=== PATIENT | male | born 1955 | race Caucasian/White ===

== ENCOUNTER 2020-07-23 09:48 | Observation (INO) ==
[2020-07-23] MEDS ORDERED: SODIUM CHLORIDE 0.9% 1,000 ML IV STA (09:55)
[2020-07-23] MEDS ORDERED: KETOROLAC 30 MG/1 ML VIAL IV STA (09:55)
[2020-07-23] MEDS ORDERED: ONDANSETRON 4 MG/2 ML VIAL IV STA (09:55)
[2020-07-23] MEDS ORDERED: HYDROmorphone 2 MG/1 ML VIAL IV STA ×2 (09:55→12:17)
[2020-07-23] MEDS ORDERED: HYDROmorphone 2 MG/1 ML VIAL ONE (09:56)
[2020-07-23] MEDS ORDERED: ONDANSETRON 4 MG/2 ML VIAL ONE (09:56)
[2020-07-23 10:14] LABS: Basophils # 0.1 10*3/uL (0.0-0.2); Basophils % 0.7 % (0.0-0.8); Eosinophils # 0.1 10*3/uL (0.0-0.87); Eosinophils % 1.1 % (0.00-10.9); Hematocrit 45.2 VOL% (42.0-52.0); Hemoglobin 15.3 GM/DL (14.0-18.0); Immature Granulocytes % 1.4 %; Immature Granulocytes Absolute 0.16 #; Lymphocytes # 2.4 10*3/uL (1.4-4.0); Lymphocytes % 20.6 % (21.2-54.2); Mean Corpuscular HGB Conc 33.8 GM/DL (32-36); Mean Corpuscular Volume 93.6 FL (87-102); Mean Platelet Volume 9.8 FL (9.6-12.0); Monocytes % 5.7 % (1.7-12.7); Neutrophils % 70.5 % (38.7-73.9); Platelet Count 256 T/CUMM (130-400); Red Blood Count 4.83 MC/CUMM (3.8-5.5); Red Cell Distribution Width 12.6 % (9.3-17.3); White Blood Count 11.4 T/CUMM (4-12)
[2020-07-23 10:38] LABS: Calcium 9.9 MG/DL (8.5-10.1); Osmolality,Calculated 281.7 MOS/KG (273-304); Potassium 3.6 MMOL/L (3.5-5.1)
[2020-07-23] MEDS ORDERED: PIPERACILLIN/TAZOBACTAM 3,375 MG in SODIUM CHLORIDE 0.9% 100 ML IV STA (10:51)
[2020-07-23] MEDS ORDERED: hydrALAZINE 20 MG/1 ML VIAL IV STA (10:57)
[2020-07-23] MEDS ORDERED: hydrALAZINE 20 MG/1 ML VIAL ONE (10:57)
[2020-07-23] MEDS ORDERED: HYDROmorphone 2 MG/1 ML VIAL IV PRN (12:28)
[2020-07-23] MEDS ORDERED: ACETAMINOPHEN 325 MG TABLET PO PRN (12:28)
[2020-07-23] MEDS ORDERED: NALOXONE 0.4 MG/ML VIAL IV PRN (12:28)
[2020-07-23] MEDS ORDERED: hydroCHLOROthiazide 25 MG TABLET PO PRN (12:31)
[2020-07-23] MEDS: SODIUM CHLORIDE 0.45% 1,000 ML IV SCH ×2 (13:00→21:54)
[2020-07-23 14:29] LABS: Bilirubin,Urine Negative (Negative); Blood, Urine Negative (Negative); Glucose,Urine (UA) 150 mg/dL (Negative); Ketones,Urine 5 mg/dL (Negative); Mucus,Urine Occasional /LPF (Occasional); Nitrite,Urine Negative (Negative); Protein,Urine Negative; Squamous Epithelial Cell,Urine Occasional /HPF (0-10); Urine Appearance CLEAR (Clear); Urine Color Yellow (Yellow); Urine Specific Gravity 1.016 (1.001-1.035); Urine Urobilinogen < 2.0 EU/DL (0.2-1.0)
[2020-07-23] MEDS: DOCUSATE SODIUM 100 MG CAPSULE PO SCH (20:36)
[2020-07-23] MEDS: KETOROLAC 30 MG/1 ML VIAL IV PRN (20:37)
[2020-07-24 06:29] LABS: Basophils # 0.1 10*3/uL (0.0-0.2); Basophils % 0.7 % (0.0-0.8); Eosinophils # 0.2 10*3/uL (0.0-0.87); Immature Granulocytes % 1.4 %; Immature Granulocytes Absolute 0.11 #; Lymphocytes # 2.2 10*3/uL (1.4-4.0); Lymphocytes % 29.1 % (21.2-54.2); Mean Corpuscular HGB Conc 32.3 GM/DL (32-36); Mean Corpuscular Volume 97.6 FL (87-102); Mean Platelet Volume 10.5 FL (9.6-12.0); Monocytes % 8.2 % (1.7-12.7); Neutrophils % 58.6 % (38.7-73.9); Platelet Count 223 T/CUMM (130-400)
[2020-07-24 06:30] LABS: Hemoglobin 12.9 GM/DL (14.0-18.0); White Blood Count 7.7 T/CUMM (4-12)
[2020-07-24] MEDS: SODIUM CHLORIDE 0.45% 1,000 ML IV SCH ×2 (06:41→12:30)
[2020-07-24] MEDS: KETOROLAC 30 MG/1 ML VIAL IV PRN ×2 (06:41→14:10)
[2020-07-24 07:18] LABS: Bilirubin,Urine Negative (Negative); Blood, Urine Negative (Negative); Glucose,Urine (UA) 50 mg/dL (Negative); Ketones,Urine Negative (Negative); Mucus,Urine Occasional /LPF (Occasional); Nitrite,Urine Negative (Negative); Protein,Urine Negative; RBC,Urine <1 /HPF (0-4); Urine Appearance CLEAR (Clear); Urine Color Yellow (Yellow); Urine Urobilinogen < 2.0 EU/DL (0.2-1.0)
[2020-07-24] MEDS: DOCUSATE SODIUM 100 MG CAPSULE PO SCH (08:37)
[2020-07-24] MEDS ORDERED: LOSARTAN 50 MG TABLET PO SCH (09:00)
[2020-07-24] MEDS ORDERED: sitaGLIPtin 100 MG TABLET PO SCH (09:00)
[2020-07-24] MEDS ORDERED: PANTOPRAZOLE 40 MG VIAL IV SCH (09:00)
[2020-07-24 16:11] VITALS: BP 138/77
== END 2020-07-24 16:30 | disposition home or self-care (01) | DRG 552 ==
LOC: N.ED 09:48 → INTOOBSV 12:28 → N.EDINP 12:28 → N.3E 13:18
PROVIDERS: ADMIT Family Medicine; ATTEND Family Medicine